=== PATIENT | male | born 1970 | race Caucasian/White ===

== ENCOUNTER 2017-12-19 11:37 | Day surgery (SDC) | payer MEDICARE, MEDICAID ==
--- NOTE | 2017-12-13 22:12 | EKG REPORT ---
SEVERITY:- ABNORMAL ECG - SINUS RHYTHM : Confirmed by: Damien Pope 13-Dec-2017 22:10:52
[~2017-12-19 11:37] MED LIST: ALBUTEROL SULFATE 0.083% NEB 2.5 MG/3 ML AMPUL NEB PRN; LACTATED RINGERS 1000 ML IV PRN
[2017-12-19 13:29] LABS: INTERNATIONAL RATION (INR) 1.02; PROTHROMBIN TIME 14.1 SEC (11.4-15.4)
[2017-12-19 13:30] LABS: PARTIAL THROMBOPLASTIN TIME 29.5 SEC (23.5-35.8)
[2017-12-19] MEDS ORDERED: MIDAZOLAM 2 MG/2 ML INJ ONE (13:38)
[2017-12-19] MEDS ORDERED: FENTANYL CITRATE INJ/PF 100 MCG/2 ML AMPUL ONE (13:38)
[2017-12-19] MEDS ORDERED: PROPOFOL INJ 200 MG/20 ML VIAL IV ONE (13:38)
[2017-12-19] MEDS ORDERED: ACETAMINOPHEN 100 ML IV ONE (13:38)
[2017-12-19] MEDS ORDERED: BUPIVACAINE HCL 0.5%/EPI 1:200000 INJ 1.8 ML CARTRIDGE ONE (13:49)
[2017-12-19] MEDS ORDERED: LIDOCAINE 2%/EPINEPHRINE INJ 1.7 ML CARTRIDGE ONE ×2 (13:49→14:22)
[2017-12-19] MEDS ORDERED: OXYCODONE-ACETAMINOPHEN 5-325 MG TABLET PO PRN ×3 (14:27→15:38)
[2017-12-19] MEDS ORDERED: MEPERIDINE HCL/PF INJ 25 MG/1 ML DISP.SYRIN IV PRN (14:27)
[2017-12-19] MEDS ORDERED: DIPHENHYDRAMINE HCL 50 MG/ML VIAL IV PRN (14:27)
[2017-12-19] MEDS ORDERED: ONDANSETRON HCL INJ/PF 4 MG/2 ML SDV IV PRN (14:27)
[2017-12-19] MEDS ORDERED: FENTANYL CITRATE INJ/PF 100 MCG/2 ML AMPUL IV PRN ×3 (14:27)
[2017-12-19] MEDS ORDERED: PROMETHAZINE HCL INJ 25 MG/1 ML VIAL IV PRN ×2 (14:27)
--- NOTE | 2017-12-19 15:09 | Operative Report ---
Operative Report DATE OF SURGERY: 12/19/17 PREOPERATIVE DIAGNOSIS: Dental caries and malpositioned wisdom teeth POSTOPERATIVE DIAGNOSIS: Same OPERATION: Surgical removal of teeth numbers 1, 16, 17, 30 and 32 SURGEON: WILD KEITA ANESTHESIA: GA TISSUE REMOVED OR ALTERED: Teeth which were discarded COMPLICATIONS: None ESTIMATED BLOOD LOSS: 20 mL INTRAOPERATIVE FINDINGS: Nonrestorable tooth #32 due to caries, carious and malpositioned wisdom teeth PROCEDURE: The patient was brought into operating room #3 and placed on the operating room table in supine position. General anesthesia was induced via a peripheral IV and continued utilizing endotracheal intubation. The patient was then prepped and draped in the usual fashion for an intraoral procedure. A total of 5 carpules of 2% Lidocaine with 1:100K Epi and 2 carpules of 0.5% Marcaine with 1: 200K Epi were delivered to the planned surgical sites via both infiltration and nerve block. The oral cavity and oropharynx were suctioned and a moistened oropharyngeal throat pack was placed. A bite block was used throughout the procedure. Full thickness mucoperisteal flaps were elevated. Ostectomy was completed as needed. Tooth #30 was sectioned. Teeth were delivered with elevators and forceps. All sites debrided and irrigated. Surgifoam was placed into each of the sockets. No sinus exposure noted. Mandible intact post op. ISIDRA not visualized. Wounds reapproximated and sutured with 4-0 chromic gut. The oral cavity was suctioned and found to be free of debris. The throat pack was removed. The oropharynx was suctioned. Gauze packs were placed bilaterally to aid in continued hemastasis. The patient was awakened from general anesthesia, extubated in the operating room and taken to recovery in spontaneous breathing fashion.
[2017-12-19] MEDS ORDERED: SUCCINYLCHOLINE CHLORIDE INJ 200 MG/10 ML VIAL ONE (15:25)
[2017-12-19 17:26] VITALS: BP 149/74
== END 2017-12-19 17:15 | disposition home or self-care (01) ==
LOC: OROUT 11:37
PROVIDERS: ATTEND Dentist Oral and Maxillofacial Surgery
DX: K02.9 Dental caries, unspecified (principal); M26.30 Unspecified anomaly of tooth position of fully erupted tooth or teeth; I10 Essential (primary) hypertension; E11.9 Type 2 diabetes mellitus without complications; E66.01 Morbid (severe) obesity due to excess calories; J45.909 Unspecified asthma, uncomplicated; Z79.899 Other long term (current) drug therapy; Z79.01 Long term (current) use of anticoagulants; Z68.44 Body mass index [BMI] 60.0-69.9, adult; Z79.84 Long term (current) use of oral hypoglycemic drugs
CPT/HCPCS: 93005; 36415; 82947; 85610; 85730; 93010; 41899; J2250; J3490; J3010; J0330; J2704; A9270; J0131; 170

== ENCOUNTER 2019-02-18 19:51 | Emergency (ER) | payer MEDICARE, MEDICAID ==
--- NOTE | 2019-02-18 20:34 | ER Document Report ---
ED Medical Screen (RME) - General Chief Complaint: Leg Pain Stated Complaint: LEFT FOOT AND LEG PAIN Time Seen by Provider: 02/18/19 20:29 Primary Care Provider: ANTONY BARBA MD [Primary Care Provider] - Follow up as needed Mode of Arrival: Wheelchair Information source: Patient, Parent Notes: 48-year-old male presented to ED for complaint of left foot and leg pain up to the hip. He states he had a foot surgery 9-1/2 years ago with pins and screws and over the last several weeks he started to have increasing pain in the foot and it feels like there is screws come into the skin. His foot is discolored with lumps to the foot. He states he also has a history of a DVT in the left leg and has a filter and states that it hurts at the area where the filter is. He has a history of abscesses to the left leg high blood pressure diabetes asthma and panic attacks. He does live by himself. There is still discoloration to the foot and leg. He does have pedal pulses present. Patient is a 514 pound male that is living by himself does not work and mother comes and checks on him every 2 months and takes them to the office appointments. He is extremely morbidly obese. I have greeted and performed a rapid initial assessment of this patient. A comprehensive ED assessment and evaluation of the patient, analysis of test results and completion of medical decision making process will be conducted by an additional ED providers. Dictation of this chart was performed using voice recognition software; therefore, there may be some unintended grammatical er rors. TRAVEL OUTSIDE OF THE [place] IN LAST 30 DAYS: No - Related Data Allergies/Adverse Reactions: caffeine [Caffeine] Adverse Reaction (Verified 06/19/12 09:04) chocolate Adverse Reaction (Intermediate, Uncoded 06/19/12 09:04) Past Medical History - Social History Chew tobacco use (# tins/day): No Frequency of alcohol use: None Drug Abuse: None - Past Medical History Cardiac Medical History: Reports: Hx Hypercholesterolemia, Hx Hypertension Denies: Hx Coronary Artery Disease, Hx Heart Attack Pulmonary Medical History: Reports: Hx Asthma, Hx Bronchitis, Hx COPD Denies: Hx Pneumonia Neurological Medical History: Reports: Hx Seizures - SEP 2009, NO CURRENT MEDS. Denies: Hx Cerebrovascular Accident Endocrine Medical History: Reports: Hx Diabetes Mellitus Type 2 Renal/ Medical History: Reports: Hx Kidney Stones. Denies: Hx Peritoneal Dialysis GI Medical History: Reports: Hx Gastroesophageal Reflux Disease Musculoskeltal Medical History: Reports Hx Arthritis - IN LEFT FOOT Psychiatric Medical History: Reports: Hx Schizophrenia Past Surgical History: Reports: Hx Bowel Surgery - 08/18, Hx Orthopedic Surgery - LEFT FOOT THREE SCREWS, - Immunizations Hx Diphtheria, Pertussis, Tetanus Vaccination: No History of Influenza Vaccine for 07/2017 - 12/2017 Season: Yes Influenza Administration Date for 07/2017 - 12/2017 Season: 07/09/17 Physical Exam - Vital signs Vitals: Temp Pulse Resp BP Pulse Ox 98.7 F 110 H 36 H 172/117 H 94 02/18/19 19:57 02/18/19 19:57 02/18/19 19:57 02/18/19 19:57 02/18/19 19:57 Course - Vital Signs Vital signs: Temp Pulse Resp BP Pulse Ox 98.7 F 110 H 36 H 172/117 H 94 02/18/19 19:57 02/18/19 19:57 02/18/19 19:57 02/18/19 19:57 02/18/19 19:57 Doctor's Discharge - Discharge Referrals: ANTONY BARBA MD [Primary Care Provider] - Follow up as needed
[2019-02-18 21:03] LABS: APPEARANCE,URINE CLEAR; BILIRUBIN,URINE NEGATIVE (NEGATIVE); COLOR,URINE YELLOW; GLUCOSE, URINE NEGATIVE (NEGATIVE); KETONES,URINE NEGATIVE (NEGATIVE); LEUKOCYTE ESTERASE,URINE NEGATIVE (NEGATIVE); NITRITE,URINE NEGATIVE (NEGATIVE); PROTEIN,URINE NEGATIVE (NEGATIVE); UROBILINOGEN,URINE NEGATIVE mg/dL (<2.0)
[2019-02-18 21:04] LABS: ABSOLUTE BASOPHILS # (AUTO) 0.1 10^3/uL (0.0-0.2); ABSOLUTE EOSINOPHILS # (AUTO) 0.4 10^3/uL (0.0-0.6); ABSOLUTE LYMPHOCYTES (AUTO) 1.5 10^3/uL (0.5-4.7); ABSOLUTE MONOCYTES (AUTO) 0.3 10^3/uL (0.1-1.4); ABSOLUTE NEUT (AUTO) 4.3 10^3/uL (1.7-8.2); BASOPHILS % (AUTO) 1.3 % (0-2); EOSINOPHILS % (AUTO) 5.5 % (0-6); HEMATOCRIT 44.5 % (37.9-51.0); LYMPHOCYTES % (AUTO) 22.2 % (13-45); MEAN CORPUSCULAR HEMOGLOBIN 28.2 pg (27.0-33.4); MEAN CORPUSCULAR HGB CONC 33.7 g/dL (32.0-36.0); MEAN CORPUSCULAR VOLUME 84 fl (80-97); MONOCYTES % (AUTO) 5.1 % (3-13); PLATELET COUNT 225 10^3/uL (150-450); RED BLOOD COUNT 5.31 10^6/uL (4.35-5.55); RED CELL DISTRIBUTION WIDTH 13.8 % (11.5-14.0); SEGMENTED NEUTROPHILS % (AUTO) 65.9 % (42-78); TOTAL CELLS COUNTED % (AUTO) 100 %; WHITE BLOOD COUNT 6.6 10^3/uL (4.0-10.5)
[2019-02-18 21:21] LABS: ALANINE AMINOTRANSFERASE 49 U/L (21-72); ALBUMIN 4.3 g/dL (3.5-5.0); ALKALINE PHOSPHATASE 57 U/L (38-126); ANION GAP 12 (5-19); ASPARTATE AMINO TRANSFERASE 39 U/L (17-59); BILIRUBIN,DIRECT 0.3 mg/dL (0.0-0.4); BILIRUBIN,TOTAL 0.5 mg/dL (0.2-1.3); BLOOD UREA NITROGEN 17 mg/dL (7-20); CALCIUM 9.6 mg/dL (8.4-10.2); CARBON DIOXIDE 25 mmol/L (22-30); CHLORIDE 101 mmol/L (98-107); GLUCOSE 192 mg/dL (75-110); POTASSIUM 4.7 mmol/L (3.6-5.0); SODIUM 137.8 mmol/L (137-145); TOTAL PROTEIN 7.3 g/dL (6.3-8.2)
--- NOTE | 2019-02-18 21:25 | RADIOLOGY REPORT (SQ) ---
EXAM DESCRIPTION: XR FOOT 3 OR MORE VIEWS COMPLETED DATE/TME: 02/18/2019 20:29 CLINICAL HISTORY: 48 years ,Male pain hx surgery screws 9 years ago COMPARISON: None. TECHNIQUE: LEFT foot, Three view FINDINGS: No acute fractures or dislocations are identified. No osseous destructive lesions. There are three screws transfixing the first and second tarsometatarsal junctions and the medial and middle cuneiform. No apparent fracturing or loosening of the screws. No significant ankle effusion noted. IMPRESSION: No acute fracture or dislocation is identified.
--- NOTE | 2019-02-18 23:55 | RADIOLOGY REPORT (SQ) ---
EXAM DESCRIPTION: Left lower extremity venous duplex 02/18/2019 10:53 PM CDT CLINICAL HISTORY: 48 years, 48 years, History of DVT left leg pain swelling left leg COMPARISON: None TECHNIQUE: Utilizing a linear array transducer, real-time ultrasound evaluation of the left lower extremity was performed. Color Doppler imaging was used to assess vascular flow. FINDINGS: The left common femoral and proximal/mid/distal superficial femoral veins are normal in caliber and compressibility. There is normal directional flow. The left popliteal vein is normal in appearance. There is normal directional flow and normal compressibility. There is venous reflux noted in the mid/distal femoral vein to popliteal vein. IMPRESSION: No evidence of left lower extremity deep venous thrombosis.
--- NOTE | 2019-02-19 00:29 | ER Document Report ---
ED Extremity Problem, Lower - General Chief Complaint: Leg Pain Stated Complaint: LEFT FOOT AND LEG PAIN Time Seen by Provider: 02/18/19 20:29 Primary Care Provider: ANTONY BARBA MD [Primary Care Provider] - Follow up as needed Mode of Arrival: Wheelchair Information source: Patient Notes: Patient is a 48-year-old morbidly obese male who presents to the ER today for possible blood clot of the left lower extremity. Patient was seen by urgent care today after he has had some left foot and leg pain radiating from the left foot up to the left hip for a few days, worse today, no injury. Patient has an old injury with screws in the left foot and is concerned that the "screws were out of place." He denies any new injury. Patient states that his foot was very cold and had turned purple at the urgent care so they told him that he probably had a blood clot and to come to the emergency department. Patient has no history of blood clots. He denies any low back pain. He cannot tell me whether the pain feels like it truly starts in the foot or starts in the hip but states that the entire left leg hurts. TRAVEL OUTSIDE OF THE [place] IN LAST 30 DAYS: No - Related Data Allergies/Adverse Reactions: caffeine [Caffeine] Adverse Reaction (Verified 06/19/12 09:04) chocolate Adverse Reaction (Intermediate, Uncoded 06/19/12 09:04) Past Medical History - General Information source: Patient - Social History Smoking Status: Never Smoker Chew tobacco use (# tins/day): No Frequency of alcohol use: None Drug Abuse: None Family History: Reviewed & Not Pertinent Patient has suicidal ideation: No Patient has homicidal ideation: No - Past Medical History Cardiac Medical History: Reports: Hx Hypercholesterolemia, Hx Hypertension Denies: Hx Coronary Artery Disease, Hx Heart Attack Pulmonary Medical History: Reports: Hx Asthma, Hx Bronchitis, Hx COPD Denies: Hx Pneumonia Neurological Medical History: Reports: Hx Seizures - SEP 2009, NO CURRENT MEDS. Denies: Hx Cerebrovascular Accident Endocrine Medical History: Reports: Hx Diabetes Mellitus Type 2 Renal/ Medical History: Reports: Hx Kidney Stones. Denies: Hx Peritoneal Dialysis GI Medical History: Reports: Hx Gastroesophageal Reflux Disease Musculoskeletal Medical History: Reports Hx Arthritis - IN LEFT FOOT Psychiatric Medical History: Reports: Hx Schizophrenia Past Surgical History: Reports: Hx Bowel Surgery - 08/18, Hx Orthopedic Surgery - LEFT FOOT THREE SCREWS, - Immunizations Hx Diphtheria, Pertussis, Tetanus Vaccination: No Hx Pneumococcal Vaccination: 07/09/17 Review of Systems - Review of Systems Constitutional: No symptoms reported EENT: No symptoms reported Cardiovascular: No symptoms reported Respiratory: No symptoms reported Gastrointestinal: No symptoms reported Genitourinary: No symptoms reported Male Genitourinary: No symptoms reported Musculoskeletal: See HPI Skin: No symptoms reported Hematologic/Lymphatic: No symptoms reported Neurological/Psychological: No symptoms reported Physical Exam - Vital signs Vitals: Temp Pulse Resp BP Pulse Ox 98.7 F 110 H 36 H 172/117 H 94 02/18/19 19:57 02/18/19 19:57 02/18/19 19:57 02/18/19 19:57 02/18/19 19:57 - Notes Notes: PHYSICAL EXAMINATION: GENERAL: Morbidly obese, in no acute distress. HEAD: Atraumatic, normocephalic. EYES: Pupils equal round and reactive to light, extraocular movements intact, sclera anicteric, conjunctiva are normal. NECK: Normal range of motion, supple without lymphadenopathy LUNGS: CTAB and equal. No wheezes rales or rhonchi. HEART: Regular rate and rhythm without murmurs EXTREMITIES: Normal sensation, good pulses to the left foot, both feet are equally cool, no cyanosis or ecchymosis, no pitting edema, normal range of motion,. No cyanosis. NEUROLOGICAL: Cranial nerves grossly intact. Normal sensory/motor exams. PSYCH: Normal mood, normal affect. SKIN: Warm, Dry, normal turgor, no rashes or lesions noted Course - Re-evaluation Re-evalutation: 02/19/19 01:59 Duplex ultrasound negative for any sign of DVT the left lower extremity, x-ray of the left foot negative for any acute pathology, shows screws in place, patient to follow-up with his primary care provider, he has no neurovascular compromise at this time. - Vital Signs Vital signs: Temp Pulse Resp BP Pulse Ox 97.5 F 96 20 143/100 H 94 02/19/19 01:19 02/19/19 01:19 02/19/19 01:19 02/19/19 01:19 02/19/19 01:19 - Laboratory Result Diagrams: 02/18/19 20:37 02/18/19 20:37 Laboratory results interpreted by me: 02/18/19 20:37 Glucose 192 H Discharge - Discharge Clinical Impression: Left foot pain, Left leg pain Condition: Stable Disposition: HOME, SELF-CARE Additional Instructions: Return immediately for any new or worsening symptoms. Follow up with primary care provider, call tomorrow to make followup appointment. Prescriptions: Hydrocodone/Acetaminophen [[place] 10-325 Tablet] 1 each PO Q4 PRN #15 tablet PRN Reason: Referrals: ANTONY BARBA MD [Primary Care Provider] - Follow up as needed
[2019-02-19 01:20] VITALS: BP 143/100
== END 2019-02-19 01:20 | disposition home or self-care (01) ==
LOC: ER 19:51
DX: M79.672 Pain in left foot (principal); M79.605 Pain in left leg; E66.01 Morbid (severe) obesity due to excess calories; Z98.890 Other specified postprocedural states; Z87.828 Personal history of other (healed) physical injury and trauma; I10 Essential (primary) hypertension; J44.9 Chronic obstructive pulmonary disease, unspecified; E11.9 Type 2 diabetes mellitus without complications
CPT/HCPCS: 36415; 80053; 81001; 85025; 93971; 99284

== ENCOUNTER 2020-10-15 10:15 | Day surgery (SDC) | payer MEDICARE, MEDICAID ==
[2020-10-12 12:45] LABS: HEMATOCRIT 43.5 % (37.9-51.0); HEMOGLOBIN 14.7 g/dL (13.5-17.0); MEAN CORPUSCULAR HGB CONC 33.8 g/dL (32.0-36.0); MEAN CORPUSCULAR VOLUME 80 fl (80-97); PLATELET COUNT 227 10^3/uL (150-450); RED BLOOD COUNT 5.45 10^6/uL (4.35-5.55); RED CELL DISTRIBUTION WIDTH 15.1 % (11.5-14.0); WHITE BLOOD COUNT 5.8 10^3/uL (4.0-10.5)
[2020-10-12 13:04] LABS: POTASSIUM 4.7 mmol/L (3.6-5.0)
--- NOTE | 2020-10-12 14:50 | EKG REPORT ---
SEVERITY:- NORMAL ECG - SINUS RHYTHM : Confirmed by: Damien Pope 12-Oct-2020 14:49:33
[~2020-10-15 10:15] MED LIST changes: -ALBUTEROL SULFATE 0.083% NEB 2.5 MG/3 ML AMPUL NEB PRN; +LIDOCAINE 0.5% INJ-PF (5 MG/ML) 50 ML SDV SUBCUT PRN
[2020-10-15] MEDS ORDERED: GLYCOPYRROLATE 1 MG/5 ML VIAL ONE (10:38)
[2020-10-15 11:27] LABS: INTERNATIONAL RATION (INR) 1.28; PROTHROMBIN TIME 16.2 SEC (11.4-15.4)
[2020-10-15 11:28] LABS: PARTIAL THROMBOPLASTIN TIME 34.9 SEC (23.5-35.8)
[2020-10-15] MEDS ORDERED: CLINDAMYCIN 600 MG/D5W RTU 600 MG/50 ML RTUPB IV ONE (12:45)
[2020-10-15] MEDS ORDERED: DEXMEDETOMIDINE INJ 80 MCG/20 ML VIAL IV ONE (12:57)
[2020-10-15] MEDS ORDERED: KETAMINE HCL INJ 500 MG/10 ML VIAL ONE (12:57)
[2020-10-15] MEDS ORDERED: MIDAZOLAM 2 MG/2 ML INJ ONE (12:57)
[2020-10-15] MEDS ORDERED: PROPOFOL INJ 200 MG/20 ML VIAL IV ONE (12:57)
[2020-10-15] MEDS ORDERED: FENTANYL CITRATE INJ/PF 100 MCG/2 ML AMPUL ONE (12:57)
[2020-10-15] MEDS ORDERED: ONDANSETRON HCL INJ/PF 4 MG/2 ML SDV ONE (12:58)
[2020-10-15] MEDS ORDERED: BUPIVACAINE HCL 0.5%/EPI 1:200000 INJ 1.8 ML CARTRIDGE ONE ×2 (12:59→13:01)
[2020-10-15] MEDS ORDERED: LIDOCAINE 2%/EPINEPHRINE INJ 1.7 ML CARTRIDGE ONE ×2 (12:59→13:01)
[2020-10-15] MEDS ORDERED: PROMETHAZINE HCL INJ 25 MG/1 ML VIAL IV PRN ×2 (13:42)
[2020-10-15] MEDS ORDERED: DIPHENHYDRAMINE HCL 50 MG/ML VIAL IV PRN (13:42)
[2020-10-15] MEDS ORDERED: MEPERIDINE HCL/PF INJ 25 MG/1 ML DISP.SYRIN IV PRN (13:42)
[2020-10-15] MEDS ORDERED: FENTANYL CITRATE INJ/PF 100 MCG/2 ML AMPUL IV PRN ×3 (13:42)
[2020-10-15] MEDS ORDERED: OXYCODONE-ACETAMINOPHEN 5-325 MG TABLET PO PRN (13:42)
[2020-10-15] MEDS ORDERED: IPRATROPIUM/ALBUTEROL 0.5-2.5 MG/3 ML AMPUL NEB ONE (15:13)
[2020-10-15] MEDS ORDERED: DEXAMETHASONE SOD PHOS INJ 10 MG/1 ML VIAL ONE (15:58)
[2020-10-15] MEDS ORDERED: ALBUTEROL SULFATE 0.083% NEB 2.5 MG/3 ML AMPUL NEB ONE (16:09)
[2020-10-15 16:30] LABS: ARTERIAL BLOOD BASE EXCESS -1.1 mmol/L; ARTERIAL BLOOD H2CO3 1.37 mmol/L (1.05-1.35); ARTERIAL BLOOD HCO3 24.8 mmol/L (20-24); ARTERIAL BLOOD O2 SATURATION 97.2 % (94-98); ARTERIAL BLOOD PCO2 45.4 mmHg (35-45); ARTERIAL BLOOD PH 7.36 (7.35-7.45); ARTERIAL BLOOD PO2 98.6 mmHg (80-100); ARTERIAL BLOOD TOTAL CO2 26.2 mmol/L (23-27)
[2020-10-15 16:31] LABS: ARTERIAL BLOOD FIO2 100%
--- NOTE | 2020-10-15 16:36 | RADIOLOGY REPORT (SQ) ---
EXAM DESCRIPTION: CHEST SINGLE VIEW IMAGES COMPLETED DATE/TIME: 10/15/2020 4:18 pm REASON FOR STUDY: SOB COMPARISON: 2011 EXAM PARAMETERS: NUMBER OF VIEWS: One view. TECHNIQUE: Single frontal radiographic view of the chest acquired. RADIATION DOSE: NA LIMITATIONS: None. FINDINGS: LUNGS AND PLEURA: Low lung volumes. Cannot exclude limited opacification in the right bas e. The right hemidiaphragm is indistinct. MEDIASTINUM AND HILAR STRUCTURES: No masses. Contour normal. HEART AND VASCULAR STRUCTURES: Heart normal in size. Normal vasculature. BONES: No acute findings. HARDWARE: None in the chest. OTHER: No other significant finding. IMPRESSION: Low lung volumes. Cannot exclude limited airspace disease in the right base, atelectasi s versus pneumonia. TECHNICAL DOCUMENTATION: JOB ID: [id number] 2010 [employer]- All Rights Reserved Reading location - IP/workstation name: [email or web address]
--- NOTE | 2020-10-15 17:23 | Operative Report ---
Operative Report DATE OF SURGERY: 10/15/20 PREOPERATIVE DIAGNOSIS: Dental caries POSTOPERATIVE DIAGNOSIS: same OPERATION: surgical removal of teeth numbers 11, 12, 14, 15, 18, 19 and 20 with alveoloplasties of the upper left and lower left quadrant SURGEON: WILD KEITA ANESTHESIA: LMAC TISSUE REMOVED OR ALTERED: teeth and bone which were discarded COMPLICATIONS: none ESTIMATED BLOOD LOSS: 25 ml INTRAOPERATIVE FINDINGS: very difficult extractions PROCEDURE: The patient was brought into operating room number three and placed on the operating room table in supine position. IV sedation was managed by the anesthesia department. A total of four carpules of 2% lidocaine with 1 to 100,000 epinephrine and two carpules of 1/2% marcaine with 1 to 200,000 epinephrine were delivered to the planned surgical sites via both infiltration and nerve block A throat screen was placed. Full thickness mucoperiosteal flaps were elevated via sulcular incisions. Ostectomy was completed as needed. Teeth numbers 12, 14, 18 and 19 were sectioned. Teeth were delivered with forceps Root tips numbers 12 and 14 were intentionally left because of extreme difficulty in removing them. Alveoloplasties were completed using ronguers and bone files. Flaps were reapproximated and sutured using 4/0 chromic suture. Gauze pack was placed. The patient was taken to recovery room in stable condition. It should be noted that the sedation was inadequate and the patient moved throughout the procedure thus dramatically increasing the difficulty of the procedure.
[2020-10-15 18:55] VITALS: BP 133/78
== END 2020-10-15 17:29 | disposition home or self-care (01) ==
LOC: OROUT 10:15
PROVIDERS: ATTEND Dentist Oral and Maxillofacial Surgery
DX: K02.9 Dental caries, unspecified (principal); E11.9 Type 2 diabetes mellitus without complications; E66.01 Morbid (severe) obesity due to excess calories; G40.509 Epileptic seizures related to external causes, not intractable, without status epilepticus; I10 Essential (primary) hypertension; F41.9 Anxiety disorder, unspecified; Z86.718 Personal history of other venous thrombosis and embolism; K21.00 Gastro-esophageal reflux disease with esophagitis, without bleeding; J45.909 Unspecified asthma, uncomplicated; Z79.01 Long term (current) use of anticoagulants; Z01.812 Encounter for preprocedural laboratory examination; Z20.828 Contact with and (suspected) exposure to other viral communicable diseases; Z79.899 Other long term (current) drug therapy; Z79.84 Long term (current) use of oral hypoglycemic drugs
CPT/HCPCS: 41899; 41874 ×2; 93005; 36415 ×2; 82962; 82803; 80051; 85027; 85610; 85730; 71045; 93010; 36600; U0003; J2250; J3490 ×4; J3010; J2405; J2704; J1100; A9270; C9803; 170; 87635; J7613